=== PATIENT | male | born 1990 | race Caucasian/White ===

== ENCOUNTER 2017-09-21 23:38 | Emergency (ER) | payer SELFPAY ==
[2017-09-22] MEDS ORDERED: MORPHINE SULFATE IR 15 MG TABLET PO ONE (02:10)
--- NOTE | 2017-09-22 02:17 | ER Document Report ---
HPI - HPI Patient complains to provider of: tibial fracture Pain Level: 5 Context: Patient is a 27-year-old male who comes emergency department for chief complaint of pain to his left leg, he states that his splint is hurting him, he tried to loosen it and it began coming apart, it was too tight and was poking him uncomfortably. He states he wants it changed. He states that about 5 days ago he had a fall injury where he landed awkwardly on his leg after jumping a fence doing parkour, he was diagnosed with a mid tibial fracture by [facility] in place in the splint, he states he was given naproxen for pain, he has sutures in his left hand and on his forehead and he was given antibiotics for these but he states they were too expensive to fill. He denies any pain to the wounds, they seem to be healing well, he denies any other complaints. He has not followed up with orthopedics yet, he states he thinks he was told to go back to the hospital but has not yet. - CONSTITUTIONAL Constitutional: DENIES: Fever, Chills - EENT EENT: DENIES: Sore Throat, Ear Pain, Eye problems - NEURO Neurology: DENIES: Headache, Weakness, Vision blurred, Dizzinesss / Vertigo - CARDIOVASCULAR Cardiovascular: DENIES: Chest pain - RESPIRATORY Respiratory: DENIES: Trouble Breathing, Coughing - GASTROINTESTINAL Gastrointestinal: DENIES: Abdominal Pain, Black / Bloody Stools - URINARY Urinary: DENIES: Dysuria, Urgency, Frequency - MUSCULOSKELETAL Musculoskeletal: REPORTS: Extremity pain - L leg fx 1wk ago Past Medical History - General Information source: Patient - Social History Smoking Status: Never Smoker Drug Abuse: None Lives with: Family Family History: Reviewed & Not Pertinent Patient has suicidal ideation: No Patient has homicidal ideation: No Renal/ Medical History: Denies: Hx Peritoneal Dialysis Musculoskeltal Medical History: Reports Hx Musculoskeletal Deformity, Reports Hx Musculoskeletal Trauma Psychiatric Medical History: Reports: Hx Attention Deficit Hyperactivity Disorder, Hx Bipolar Disorder Traumatic Medical History: Reports: Hx Fractures - COLLARBONE X2 AND NOSE FX - Immunizations Immunizations up to date: No Hx Diphtheria, Pertussis, Tetanus Vaccination: No Vertical Provider Document - INFECTION CONTROL TRAVEL OUTSIDE OF THE [place] IN LAST 30 DAYS: No - HEENT HEENT: Atraumatic, Normocephalic - NECK Neck: Normal Inspection - RESPIRATORY Respiratory: Breath Sounds Normal, No Respiratory Distress - CARDIOVASCULAR Cardiovascular: Regular Rate, Regular Rhythm - GI/ABDOMEN Gastrointestinal: Abdomen Soft, Abdomen Non-Tender - BACK Back: Normal Inspection - MUSCULOSKELETAL/EXTREMETIES Musculoskeletal/Extremeties: Tender - Splint in place over lower left extremity. This was removed, shows bruising to the bottom of the ankle over the lateral aspect, soft tissue swelling, however pulses, sensation, cap refill intact, no deformity, no open wounds except for a possible small blister at the second toe. Course - Re-evaluation Re-evalutation: Splint was removed, leg was cleaned, new splint placed for better comfort, provided with pain medicine, referred to orthopedics, stressed the importance of being seen in close follow-up by orthopedics for better care. X-ray deferred because he has already had this worked up. Patient and significant other state understanding and agreement. - Vital Signs Vital signs: Temp Pulse Resp BP Pulse Ox 99.3 F 93 20 118/70 96 09/22/17 00:18 09/22/17 00:18 09/22/17 00:18 09/22/17 00:09/22/17 00:18 Procedures - Immobilization Left leg/ankle Pre-Proc Neuro Vasc Exam: Normal Immobilizer type: Long leg posterior Performed by: PCT Post-Proc Neuro Vasc Exam: Normal Alignment checked and good: Yes Discharge - Discharge Clinical Impression: Tibia fracture Qualifiers: Encounter type: initial encounter Tibia location: shaft Fracture type: closed Fracture morphology: unspecified fracture morphology Laterality: left Qualified Code(s): S82.202A - Unspecified fracture of shaft of left tibia, initial encounter for closed fracture Condition: Stable Disposition: HOME, SELF-CARE Additional Instructions: Please call the orthopedic referral tomorrow for close follow-up, you will need additional management by orthopedics for the tibial fracture. Take the pain medication as prescribed if needed, take Tylenol otherwise. Return for any concerning symptoms including severe swelling or pain. Prescriptions: Morphine Sulfate [Morphine Ir 15 Mg Tablet] 15 mg PO Q4HP PRN #15 tablet PRN Reason: Referrals: ARPIT VAZQUEZ DO [ACTIVE STAFF] - Follow up tomorrow
[2017-09-22 03:15] VITALS: BP 115/71
== END 2017-09-22 03:19 | disposition home or self-care (01) ==
LOC: ER 23:38
PROC: 2W3MX1Z Immobilization of Left Lower Extremity using Splint (ICD-10-PCS; principal; 2017-09-21)
DX: S82.202A Unspecified fracture of shaft of left tibia, initial encounter for closed fracture (principal); X58.XXXA Exposure to other specified factors, initial encounter
CPT/HCPCS: 99282